=== PATIENT | female | born 1965 | race African-American/Black ===

== ENCOUNTER → 2016-11-12 | Day surgery (SDC) | payer OTHER ==
[~2016-11-12] MED LIST: ESSENTIA TABLE1 EACH PO; FLEXERIL10 MG PO; HYDROCHLOROTHIA25 MG PO; MEDROL DOSEPAK4 MG DOB; NORVASC10 MG PO; TRAMADOL HCL50 M1 PO; ZYRTEC10 M1 PO
--- NOTE | ~2016-11-12 | OR ---
Unit #: [id number] #: [id number] Patient: DANA LARKIN [id number] [address] [id number] O MR#: [id number] NAME: DANA LARKIN ROOM: Date of Procedure: 11/12/2016 Admission Date: 11/12/2016 Surgeon: Luis A Zambrano M.D. : 1965 Attending Physician: Luis A Zambrano M.D. OPERATIVE REPORT PROCEDURE PERFORMED Colonoscopy to cecum. INDICATIONS FOR PROCEDURE Average risk for colorectal cancer. MEDICATIONS Monitored anesthesia. POSTOPERATIVE FINDINGS 1. Colonoscopy completed to cecum. Prep was good. 2. No polyps, masses, or colitis. 3. Small internal hemorrhoids. PLAN Repeat colonoscopy in 10 years. DESCRIPTION OF PROCEDURE The patient was explained of the procedure, risks, and benefits along with the risks and benefits of anesthesia. She was brought to the endoscopy room. Propofol anesthesia was given. Rectal exam was done, which was normal. Colonoscope was lubricated, passed up the rectum, advanced under direct vision all the way to cecum. Cecum was identified by ileocecal valve and appendiceal orifice. At this point, I started to pull the scope out carefully looking. No polyps, masses, or colitis was seen. Mucosa was normal and healthy. I retroflexed in the rectum, small hemorrhoids seen. Scope was gently pulled out. She tolerated it well. Dictated by... Charo Woodall/trevor TD: 11/12/2016 22:40 JOB #: [id number] Unit #: [id number] #: [id number] Patient: DANA LARKIN OPERATIVE REPORT Page 1 of 1 X Luis A Zambrano MD X PROCEDURE OPERATIVE NOTE
== END | disposition home or self-care (01) ==
LOC: COPS 06:40
PROVIDERS: Internal Medicine
PROC: 0DJD8ZZ Inspection of Lower Intestinal Tract, Via Natural or Artificial Opening Endoscopic (ICD-10-PCS; principal; 2016-11-12 09:30)
DX: Z12.11 Encounter for screening for malignant neoplasm of colon (principal); K64.8 Other hemorrhoids; I10 Essential (primary) hypertension; K21.9 Gastro-esophageal reflux disease without esophagitis; E66.9 Obesity, unspecified; Z68.34 Body mass index [BMI] 34.0-34.9, adult; Z79.899 Other long term (current) drug therapy; Z98.51 Tubal ligation status; Z91.013 Allergy to seafood; Z91.018 Allergy to other foods; Z91.09 Other allergy status, other than to drugs and biological substances
CPT/HCPCS: J2250